=== PATIENT | male | born 1995 | race American Indian/Alaskan Native ===

== ENCOUNTER 2020-08-11 12:27 | Emergency (ER) | payer SELFPAY ==
--- NOTE | 2020-08-11 13:49 | Emergency Department Report ---
ED General Adult HPI - General Chief complaint: Chest Pain Stated complaint: CHEST TIGHTNESS Time Seen by Provider: 08/11/20 13:07 Source: patient Mode of arrival: Ambulatory Limitations: No Limitations - History of Present Illness Initial comments: Patient is a 25-year-old male presents emergency room complaints of chest tightness for 2-1/2 weeks. He denies any pleuritic chest pain, shortness of breath, fever, nausea, vomiting, diarrhea, cough, leg swelling. Patient is a current every day smoker, he smokes 1 pack every 2 to 3 days. He denies any recent travel, recent surgery, recent immobilization, sick contacts. No past medical history. No allergies to medications. - Related Data Allergies Allergy/AdvReac Type Severity Reaction Status Date / Time No Known Allergies Allergy Unverified 08/11/20 12:31 ED Review of Systems ROS: Stated complaint: CHEST TIGHTNESS Other details as noted in HPI Comment: All other systems reviewed and negative ED Past Medical Hx - Past Medical History Previous Medical History?: No - Surgical History Past Surgical History?: No ED Physical Exam - General Limitations: No Limitations General appearance: alert, in no apparent distress - Head Head exam: Present: atraumatic, normocephalic - Eye Eye exam: Present: normal appearance - ENT ENT exam: Present: mucous membranes moist - Respiratory Respiratory exam: Present: normal lung sounds bilaterally. Absent: respiratory distress, wheezes, rales, rhonchi, stridor, chest wall tenderness, accessory muscle use, decreased breath sounds, prolonged expiratory - Cardiovascular Cardiovascular Exam: Present: regular rate, normal rhythm, normal heart sounds. Absent: systolic murmur, diastolic murmur, rubs, gallop - Neurological Exam Neurological exam: Present: alert, oriented X3 - Psychiatric Psychiatric exam: Present: normal affect, normal mood - Skin Skin exam: Present: warm, dry, intact ED Course Vital Signs 08/11/20 08/11/20 12:32 14:10 Temperature 98.7 F Pulse Rate 60 56 L Respiratory 15 16 Rate Blood Pressure 134/69 Blood Pressure 111/77 [Right] O2 Sat by Pulse 99 99 Oximetry ED Medical Decision Making - EKG Data EKG shows normal: sinus rhythm, axis, intervals, QRS complexes, ST-T waves Rate: normal - Radiology Data Radiology results: report reviewed Ordering Physician: JUSTINA LUO Date of Service: 08/11/20 Procedure(s): XR chest routine 2V Accession Number(s): [id number] cc: JUSTINA LUO Fluoro Time In Minutes: CHEST 2 VIEWS INDICATION / CLINICAL INFORMATION: chest tightness. COMPARISON: None available. FINDINGS: SUPPORT DEVICES: None. HEART / MEDIASTINUM: No significant abnormality. LUNGS / PLEURA: No significant pulmonary or pleural abnormality. No pneumothorax. ADDITIONAL FINDINGS: No significant additional findings. IMPRESSION: 1. No acute findings. Signer Name: Ruperto Cisneros MD Signed: 08/11/2020 1:44 PM Workstation Name: [id number] Transcribed By: TL Dictated By: Ruperto Cisneros MD Electronically Authenticated By: Ruperto Cisneros MD Signed Date/Time: 08/11/201343 DD/ 42 TD/TT: - Medical Decision Making Patient is a 25-year-old male presents emergency room complaints of chest tightness for 2-1/2 weeks. He denies any pleuritic chest pain, shortness of breath, fever, nausea, vomiting, diarrhea, cough, leg swelling. Patient is a current every day smoker, he smokes 1 pack every 2 to 3 days. He denies any recent travel, recent surgery, recent immobilization, sick contacts. No past medical history. No allergies to medications. Vitals are stable, no hypoxia, no tachycardia, no fever. Breath sounds are clear bilaterally on exam, no wheezing, no rales, no rhonchi, neurosurgery chest, no accessory muscle use. EKG is within normal limits. Chest x-ray with no acute process. Patient is PERC criteria negative for PE, PE unlikely. Symptoms could be related to patient's chronic smoking history. He has no clinical signs of bacterial pneumonia or bacterial bronchitis at this time. Discussed in detail with patient risk associated with chronic tobacco use and he was counseled on smoking cessation. advised pt Please follow-up with your primary care doctor. Please stop smoking. Return to emergency room for new or worsening symptoms. Critical care attestation.: If time is entered above; I have spent that time in minutes in the direct care of this critically ill patient, excluding procedure time. ED Disposition Clinical Impression: Chest tightness, Tobacco use Disposition: - TO HOME OR SELFCARE Is pt being admited?: No Does the pt Need Aspirin: No Condition: Stable Instructions: Nonspecific Chest Pain, Adult, Steps to Quit Smoking Additional Instructions: Please follow-up with your primary care doctor. Please stop smoking. Return to emergency room for new or worsening symptoms. Referrals: JIM WANG MD [Staff Physician] - 2-3 Days [facility] [Provider Group] - 2-3 Days Time of Disposition: 13:55 Print Language: IRISH
[2020-08-11 14:28] VITALS: BP 111/77
--- NOTE | 2020-08-15 14:19 | Electrocardiograph Report ---
[facility] Test Date: 2020-08-11 Test Time: 12:37:48 Pat Name: FAUSTINA PAZ Department: Room: Gender: M [employer]: JOSIE : 1995 Requested By: HARSH BURGOS Order Number: [id number] Reading MD: Jameel Dale Measurements Intervals [place] Rate: 66 P: 53 PA: 137 QRS: 41 QRSD: 96 T: 23 QT: 371 QTc: 388 Interpretive Statements Sinus rhythm No previous ECG available for comparison Electronically Signed On 08-15-2020 14:19:28 EDT by Jameel Dale
== END 2020-08-11 14:10 | disposition home or self-care (01) ==
LOC: ED 12:27
DX: R07.89 Other chest pain (principal); F17.200 Nicotine dependence, unspecified, uncomplicated
CPT/HCPCS: 71046; 93005